=== PATIENT | male | born 1935 | race Caucasian/White ===

== ENCOUNTER 2017-10-20 10:51 | Day surgery (SDC) | payer MEDICARE ==
[~2017-10-20] VITALS: Ht 175.3 cm; Wt 72.8 kg
[2017-10-20 11:26] VITALS: BP 155/88; PULSE 105; TEMP 97.7
[2017-10-20 12:35] VITALS: BP 131/70; PULSE 94; TEMP 97
[2017-10-20] MEDS ORDERED: HCTZ 25MG TAB25 MG PO (12:37)
[2017-10-20] MEDS ORDERED: PRILOSEC 20MG20 MG PO (12:37)
[2017-10-20] MEDS ORDERED: PRAVACHOL 20MG20 MG PO (12:37)
[2017-10-20 12:50] VITALS: BP 121/64; PULSE 87
[2017-10-20 13:05] VITALS: BP 136/76; PULSE 86
[2017-10-20 13:53] VITALS: BP 127/75; PULSE 89
== END 2017-10-20 13:20 | disposition home or self-care (01) ==
LOC: SDCO 10:51
DX: K22.2 Esophageal obstruction (principal); R13.10 Dysphagia, unspecified; K21.9 Gastro-esophageal reflux disease without esophagitis; E78.00 Pure hypercholesterolemia, unspecified; Z88.6 Allergy status to analgesic agent; Z83.79 Family history of other diseases of the digestive system
CPT/HCPCS: C1726; J2250; J3010; J7030